=== PATIENT | female | born 1945 | race Caucasian/White ===

== ENCOUNTER 2018-04-10 19:13 | Emergency (ER) | payer MEDICARE, OTHER ==
[~2018-04-10] VITALS: Ht 156.2 cm; Wt 79.8 kg
[~2018-04-10 19:13] MED LIST: AVELOX400 MG PO; CEPHALEXIN500 MG PO; LEVOTHYROXINE100 MCG PO; LIPITOR20 MG PO; NORVASC5 MG PO; PANTOPRAZOLE SO40 MG PO; RAMIPRIL10 MG PO
[2018-04-10 20:38] LABS: BASOPHILS # (AUTO) 0.1 (0.0-0.1); BASOPHILS % 0.6 % (0.0-1.0); EOSINOPHILS # (AUTO) 0.1 (0.0-0.4); EOSINOPHILS % 0.8 % (0.0-6.0); HEMATOCRIT 42.5 % (34.2-44.1); HEMOGLOBIN 14.4 g/dL (12.0-16.0); LYMPHOCYTES # (AUTO) 2.2 (1.0-3.2); LYMPHOCYTES % 21.1 % (18.0-39.1); MEAN CORPUSCULAR HEMOGLOBIN 29.6 pg (28-32); MEAN CORPUSCULAR HGB CONC 33.9 g/dL (31-35); MEAN CORPUSCULAR VOLUME 87.4 fL (81-99); MONOCYTES # (AUTO) 1.1 (0.2-0.8); NEUTROPHILS # (AUTO) 7.1 (2.1-6.9); PLATELET COUNT 328 x10e3/uL (140-360); RED BLOOD COUNT 4.86 x10e6/uL (3.6-5.1); RED CELL DISTRIBUTION WIDTH 14.7 % (11.7-14.4)
[2018-04-10 20:50] LABS: ALANINE AMINOTRANSFERASE 20 IU/L (0-55); ALBUMIN 4.2 g/dL (3.5-5.0); ALBUMIN/GLOBULIN RATIO 1.1 (0.8-2.0); ALKALINE PHOSPHATASE 69 IU/L (40-150); ANION GAP 15.8 mmol/L (8-16); BLOOD UREA NITROGEN 21 mg/dL (7-26); BUN/CREATININE RATIO 27 (6-25); CALCIUM 10.8 mg/dL (8.4-10.2); CARBON DIOXIDE 25 mmol/L (22-29); CHLORIDE 97 mmol/L (98-107); CREATINE KINASE 102 IU/L (29-168); CREATININE, SERUM 0.79 mg/dL (0.57-1.11); EST GLOMERULAR FILTRATION RATE > 60 ML/MIN (60-); GLUCOSE 110 mg/dL (74-118); MAGNESIUM 1.5 MG/DL (1.3-2.1); POTASSIUM 3.8 mmol/L (3.5-5.1); SODIUM 134 mmol/L (136-145)
--- NOTE | 2018-04-10 21:22 | Diagnostic Imaging Report ---
CHEST SINGLE (PORTABLE), 04/10/2018 8:27 PM Technique: CHEST SINGLE (PORTABLE) Comparison: 02/28/2014 Clinical history: Palpitations Findings: Stable appearance of the heart, mediastinum, lungs and pleural spaces. Impression: 1. Lines/Tubes: None 2. No acute abnormality. Signed by: Dr Clementine Alcocer MD on 04/10/2018 9:19 PM
[2018-04-10 22:10] LABS: CLARITY,URINE CLEAR (CLEAR); COLOR,URINE YELLOW (YELLOW); LEUKOCYTE ESTERASE ,URINE NEGATIVE (NEGATIVE); NITRITE,URINE NEGATIVE (NEGATIVE)
[2018-04-10 22:11] LABS: BILIRUBIN,URINE NEGATIVE (NEGATIVE); KETONES,URINE NEGATIVE (NEGATIVE); PROTEIN,URINE DIPSTICK NEGATIVE (NEGATIVE); URINE UROBILINOGEN 0.2 mg/dL (0.2 - 1)
[2018-04-10 22:19] LABS: EPITHELIAL CELLS,URINE MODERATE /LPF; RENAL EPITHELIAL CELLS,URINE FEW
[2018-04-10 22:40] VITALS: BP 150/79
== END 2018-04-10 22:55 | disposition home or self-care (01) ==
LOC: ER 19:13
DX: R00.2 Palpitations (principal); R42 Dizziness and giddiness; I10 Essential (primary) hypertension; E78.5 Hyperlipidemia, unspecified; E03.9 Hypothyroidism, unspecified; K21.9 Gastro-esophageal reflux disease without esophagitis
CPT/HCPCS: 36415; 71045; 80053; 81001; 82550; 82553; 83735; 84484; 85025; 93005; 99284

== ENCOUNTER → 2018-10-11 | Day surgery (SDC) | payer MEDICARE, OTHER ==
[2018-10-06 14:33] LABS: BASOPHILS % 0.4 % (0.0-1.0); EOSINOPHILS # (AUTO) 0.1 (0.0-0.4); EOSINOPHILS % 0.8 % (0.0-6.0); HEMATOCRIT 41.7 % (34.2-44.1); HEMOGLOBIN 13.9 g/dL (12.0-16.0); LYMPHOCYTES # (AUTO) 2.5 (1.0-3.2); LYMPHOCYTES % 23.3 % (18.0-39.1); MEAN CORPUSCULAR HEMOGLOBIN 29.1 pg (28-32); MEAN CORPUSCULAR HGB CONC 33.3 g/dL (31-35); MEAN CORPUSCULAR VOLUME 87.4 fL (81-99); MONOCYTES % 9.2 % (4.4-11.3); NEUTROPHILS # (AUTO) 7.2 (2.1-6.9); NEUTROPHILS % 65.9 % (38.7-80.0); PLATELET COUNT 310 x10e3/uL (140-360); RED BLOOD COUNT 4.77 x10e6/uL (3.6-5.1); RED CELL DISTRIBUTION WIDTH 14.9 % (11.7-14.4)
[~2018-10-11] MED LIST changes: +ALPRAZOLAM0.5 MG PO; +ATENOLOL50 MG PO; +CHONDROITIN PO; +FENTANYL CITRATE/PF 100MCG/2 ML INJ ONE; +GLUCAGON FOR INJ 1 MG VIAL ONE; +GLUCOSAMINE1000 MG PO; +HYOSCYAMINE SULFATE 0.5 MG/ML INJ ONE; +MIDAZOLAM HCL 2 MG/2 ML VIAL ONE; +MULTI-VITAMIN1 EACH PO; +OMEGA 3 1,0001 EACH PO; +PROPOFOL IV EMULSION 10 MG/ML 50 ML VIAL ONE; +VIT D3 PO
--- NOTE | 2018-10-11 16:30 | Operative Report ---
DATE OF PROCEDURE: 10/11/2018 SURGEON: Jacob Dubon MD PROCEDURES: EGD with polypectomy and biopsies and a colonoscopy with polypectomy. REFERRING PHYSICIAN: Ruddy Soliman D.O. INDICATIONS FOR EGD: Acid reflux. INDICATIONS FOR COLONOSCOPY: Surveillance colonoscopy, personal history of colon polyps. MEDICATION: The patient was done under MAC. Please see anesthesiologist's note. PROCEDURE IN DETAIL: With the patient in left lateral decubitus position, a flexible fiberoptic Olympus gastroscope was introduced into the esophagus under direct visualization without any difficulty. There was some patchy erythema noted in distal esophagus. The scope was then advanced with ease into the stomach, traversing a small hiatal hernia. Mucosa overlying the antrum and the body revealed some patchy erythema and low-grade to moderate edema. Biopsies were obtained, sent to stain for H. pylori. Pylorus appeared to be of normal contour, shape, was intubated with ease and the scope was advanced all the way to the 2nd portion of the duodenum. A minute polyp was noted in the proximal 2nd portion that was removed per the cold biopsy forceps. Mucosa overlying the duodenal bulb appeared to be within normal limits. The scope was then withdrawn back into the stomach and retroflexed. The mucosa overlying the fundus and cardia appeared to be within normal limits. The scope was then straightened out and was subsequently withdrawn. The patient tolerated the procedure well. IMPRESSION: 1. Distal esophagitis, mild. 2. Small hiatal hernia. 3. Gastritis biopsied. Biopsies sent to stain for Helicobacter pylori. 4. Duodenal polyp, minute, proximal 2nd portion, removed per cold biopsy forceps. PLAN: Follow up pathology. Initiate Protonix 40 mg one p.o. q.a.m. before meals. The patient was then turned around. After adequate lubrication of the anal canal, a flexible fiberoptic Olympus colonoscope was inserted into the rectum with ease and advanced all the way to the cecum. The scope was then withdrawn slowly. Mucosa overlying the cecum, ascending colon appeared to be within normal limits. One polyp was snared and 2 polyps were hot biopsied from the transverse colon. One polyp was snared and 2 polyps were hot biopsied from the descending colon. Diverticular disease was noted involving the distal descending and the sigmoid colon. Six polyps were snared and 1 polypectomy site was hemoclipped and 12 polyps were hot biopsied from the sigmoid colon. Four polyps were hot biopsied from the rectum. The scope was then retroflexed into the distal rectum and small internal hemorrhoids were noted, none of which was actively bleeding. The scope was then straightened out and was subsequently withdrawn. The patient tolerated the procedure well. IMPRESSION: 1. Transverse colon polyps x3, 1 snared and 2 hot biopsied. 2. Descending colon polyps x3, 1 snared and 2 hot biopsied. 3. Diverticulosis. 4. Sigmoid colon polyps x18. Six snared and 1 polypectomy site hemoclipped and 12 hot biopsied. 5. Rectal polyps x4, hot biopsied. 6. Internal hemorrhoids none actively bleeding. A total of 28 polyps were removed. PLAN: Follow up histology. The patient does meet the criteria for the hyper polyposis syndrome. She will need a repeat colonoscopy at least in 1 year, probably earlier. MD CEDRIC Velazquez/DIANE /[id number] cc: Ruddy Soliman DO
--- OUTSIDE RECORDS SUMMARY | 2018-10-13 09:01 | XMS REPORT ---
Author Author [facility] Address Unknown Phone Unavailable Care Team Providers Care Department Sales Manager Name Role Phone Nam SHANNON Unavailable Unavailable Problems This patient has no known problems. Allergies, Adverse Reactions, Alerts This patient has no known allergies or adverse reactions. Medications This patient has no known medications. Results Test Description Test Time Test Comments Text Results Atomic Results Result Comments CHEST SINGLE (PORTABLE) 2018-04-10 21:19:00 [place] [address] Patient Name: TITO JOHNSON MR #: [id number] : 1945 Age/Sex: 72/F Req #: [id number] Adm Physician: Ordered by: ALPHONSE SHANNON MD Report #: [id number] Location: ER Room/Bed: Procedure: [id number] DX/CHEST SINGLE (PORTABLE) Exam Date: 04/10/18 Exam Time: 2039 REPORT STATUS: Signed CHEST SINGLE (PORTABLE), 04/10/2018 8:27 PM Technique: CHEST SINGLE (PORTABLE) Comparison: 02/28/2014 Clinical history: Palpitations Findings: Stable appearance of the heart, mediastinum, lungs and pleural spaces. Impression: 1. Lines/Tubes: None 2. No acute abnormality. Signed by: Dr Sharlene Alcocer MD on 04/10/2018 9:19 PM Dictated By: SHARLENE ALCOCER MD 18 Transcribed By: DENNIS on 04/10/182118 COPY TO: ALPHONSE SHANNON MD
== END | disposition home or self-care (01) ==
LOC: ENDO 08:04
PROVIDERS: ATTEND Internal Medicine Gastroenterology
DX: Z12.11 Encounter for screening for malignant neoplasm of colon (principal); Z86.010 Personal history of colon polyps; K21.0 Gastro-esophageal reflux disease with esophagitis; K44.9 Diaphragmatic hernia without obstruction or gangrene; K29.70 Gastritis, unspecified, without bleeding; K31.7 Polyp of stomach and duodenum; K63.5 Polyp of colon; K57.30 Diverticulosis of large intestine without perforation or abscess without bleeding; K62.1 Rectal polyp; K64.8 Other hemorrhoids; Z88.5 Allergy status to narcotic agent; Z88.2 Allergy status to sulfonamides; I10 Essential (primary) hypertension; F41.9 Anxiety disorder, unspecified; E03.9 Hypothyroidism, unspecified
CPT/HCPCS: 36415; 43239; 45384; 45385; 85025; 88305; 88312; 93005; J1610; J1980; J2250; J2704

== ENCOUNTER 2018-10-17 20:55 | Emergency (ER) | payer MEDICARE, OTHER ==
[~2018-10-17] VITALS: Ht 156.2 cm; Wt 79.8 kg
[~2018-10-17 20:55] MED LIST changes: -FENTANYL CITRATE/PF 100MCG/2 ML INJ ONE; -GLUCAGON FOR INJ 1 MG VIAL ONE; -HYOSCYAMINE SULFATE 0.5 MG/ML INJ ONE; -MIDAZOLAM HCL 2 MG/2 ML VIAL ONE; -PROPOFOL IV EMULSION 10 MG/ML 50 ML VIAL ONE
[2018-10-17] MEDS ORDERED: SODIUM CHLORIDE 0.9% 1000ML 1,000 ML IV ONE (21:15)
[2018-10-17] MEDS ORDERED: ONDANSETRON HCL INJ 2MG/ML 2ML 2 MG/ML VIAL IV ONE (21:30)
[2018-10-17 21:53] LABS: BASOPHILS # (AUTO) 0.1 (0.0-0.1); BASOPHILS % 0.4 % (0.0-1.0); EOSINOPHILS % 0.3 % (0.0-6.0); HEMATOCRIT 42.4 % (34.2-44.1); HEMOGLOBIN 13.9 g/dL (12.0-16.0); LYMPHOCYTES # (AUTO) 1.4 (1.0-3.2); LYMPHOCYTES % 11.7 % (18.0-39.1); MEAN CORPUSCULAR HEMOGLOBIN 28.5 pg (28-32); MEAN CORPUSCULAR HGB CONC 32.8 g/dL (31-35); MEAN CORPUSCULAR VOLUME 86.9 fL (81-99); MONOCYTES # (AUTO) 1.1 (0.2-0.8); MONOCYTES % 8.7 % (4.4-11.3); NEUTROPHILS # (AUTO) 9.6 (2.1-6.9); NEUTROPHILS % 78.4 % (38.7-80.0); PLATELET COUNT 330 x10e3/uL (140-360); RED BLOOD COUNT 4.88 x10e6/uL (3.6-5.1); RED CELL DISTRIBUTION WIDTH 14.6 % (11.7-14.4)
[2018-10-17 22:19] LABS: ALANINE AMINOTRANSFERASE 19 IU/L (0-55); ALBUMIN 4.1 g/dL (3.5-5.0); ALKALINE PHOSPHATASE 83 IU/L (40-150); AMYLASE 37 U/L (25-125); ANION GAP 15.2 mmol/L (8-16); BLOOD UREA NITROGEN 13 mg/dL (7-26); BUN/CREATININE RATIO 16 (6-25); CALCIUM 10.5 mg/dL (8.4-10.2); CARBON DIOXIDE 21 mmol/L (22-29); CHLORIDE 100 mmol/L (98-107); CREATINE KINASE 127 IU/L (29-168); EST GLOMERULAR FILTRATION RATE > 60 ML/MIN (60-); GLUCOSE 115 mg/dL (74-118); LIPASE 19 U/L (8-78); POTASSIUM 4.2 mmol/L (3.5-5.1); SODIUM 132 mmol/L (136-145)
[2018-10-17 22:46] LABS: CLARITY,URINE CLEAR (CLEAR); COLOR,URINE YELLOW (YELLOW); LEUKOCYTE ESTERASE ,URINE NEGATIVE (NEGATIVE)
[2018-10-17 22:47] LABS: BILIRUBIN,URINE NEGATIVE (NEGATIVE); KETONES,URINE NEGATIVE (NEGATIVE); NITRITE,URINE NEGATIVE (NEGATIVE); PROTEIN,URINE DIPSTICK 1+ (NEGATIVE); URINE UROBILINOGEN 0.2 mg/dL (0.2 - 1)
--- NOTE | 2018-10-17 23:24 | Diagnostic Imaging Report ---
EXAMINATION: CHEST SINGLE (NOT PORTABLE) COMPARISON: Chest x-ray 04/10/2018 INDICATION: Near syncope ^near syncope ^[id number] ^2300 ^Y DISCUSSION: Frontal view of the chest obtained at 2257 hours. HEART AND MEDIASTINUM: The cardiomediastinal silhouette is unremarkable. LINES: None. LUNGS: Well-inflated and clear. PLEURA: No pleural effusion or pneumothorax. 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 BONES AND SOFT TISSUES: No focal osseous lesion. The soft tissues are normal. IMPRESSION: No acute cardiopulmonary disease. Signed by: Dr. Rc Fuller MD on 10/17/2018 11:21 PM
--- NOTE | 2018-10-17 23:33 | Diagnostic Imaging Report ---
Examination: CT head without contrast Clinical Indication: Near syncope with fall and head injury. Technique: Transaxial noncontrast images from the skull base through the vertex were obtained. Sagittal and coronal reformatted images were done. Dose modulation, iterative reconstruction, and/or weight based adjustment of the mA/kV was utilized to reduce the radiation dose to as low as reasonably achievable. Comparison: None. Findings: Scalp: No abnormalities. Bones: Intact. No fractures. No blastic or lytic lesions. Brain sulci: Appropriate for patient's age. Ventricles: Normal in size and configuration. No hydrocephalus. Extra-axial space: No abnormalities. Parenchyma: No masses, hemorrhage, or acute or chronic cortical based vascular insults. Suprasellar region: No abnormalities. Craniocervical junction: The foramen magnum is mildly crowded due to cerebellar tonsillar ectopia. Impression: No acute intracranial abnormality. Cerebellar tonsillar ectopia. Signed by: Dr. Sigrid Diaz M.D. on 10/17/2018 11:29 PM
--- NOTE | 2018-10-17 23:35 | Diagnostic Imaging Report ---
Examination: CT Face without Contrast History:Near syncope with fall and face injury. Comparison studies: None Technique: Axial images were obtained through the maxillofacial region. Coronal and sagittal reconstructions obtained from the axial data. Dose modulation, iterative reconstruction, and/or weight based adjustment of the mA/kV was utilized to reduce the radiation dose to as low as reasonably achievable. Intravenous contrast: None Findings: Soft tissues: No abnormalities. Bones: No fractures or bony abnormalities. Orbits: Globes: Intact Extra or intraconal abnormalities: None. Paranasal sinuses: Clear. IMPRESSION: No acute facial abnormality. Signed by: Dr. Sigrid Diaz M.D. on 10/17/2018 11:31 PM
[2018-10-17 23:38] LABS: BACTERIA,URINE FEW /HPF; EPITHELIAL CELLS,URINE FEW /LPF; RBC,URINE 0-5 /HPF (0-5); WBC,URINE (MAN) 0-5 /HPF (0-5)
--- NOTE | 2018-10-17 23:38 | Diagnostic Imaging Report ---
CT Abdomen And Pelvis with Intravenous Contrast INDICATION: Colonoscopy one week ago, constipation, diarrhea and incontinence after taking 8 Dulcolax and 2 bottles magnesium citrate and an enema, diaphoresis and weakness, fall ^abd pain ^[id number] ^0 ^Y TECHNIQUE: Thin collimation axial images obtained from the diaphragm to the level of the pubic symphysis following the uneventful administration of 100 cc of low osmolar, nonionic intravenous contrast. Dose reduction techniques used: Automated exposure control, adjustment of the mAs and/or kVp according to patient size, standardized low-dose protocol, and/or iterative reconstruction technique. RADIATION DOSE: Total DLP: 675.88 mGy*cm Estimated effective dose: (DLP x 0.015 x size factor) mSv CTDIvol has been reviewed. It is below the limits set by the Radiation Protocol Committee (RPC). COMPARISON: None. ABDOMEN FINDINGS: Lung Bases: No infiltrates. Subpleural nodule in the inferior right upper lobe measures 2 mm. Small hiatal hernia. Liver: Decreased attenuation. No evidence for mass. Gallbladder: Present and appears normal. No biliary ductal dilatation. Pancreas: Fatty atrophy without mass or ductal dilatation.. Spleen: Normal in size. No evidence of mass.. Adrenal Glands: No evidence for mass. Kidneys: Right: Normal enhancement. No enhancing mass. Subcentimeter low attenuating lesion the upper pole is too small to characterize.. No hydronephrosis. Left: Normal enhancement. No enhancing mass. Subcentimeter low attenuating cortical lesions are too small to characterize. No hydronephrosis. Lymph Nodes: No enlarged abdominal or retroperitoneal lymph nodes. Aorta: Normal in diameter with diffuse calcifications PELVIS FINDINGS: Bowel: Stomach: Distended with fluid. Several round hyperdense foci in the body along the greater curvature measure up to 7 mm. This may be due to medication. Small Bowel: Mucosal enhancement of the jejunum and ileum. No dilatation. No adjacent inflammation. Large Bowel: Contains fluid throughout. The cecum is distended with fluid but not dilated. Small amount of dependently layering high density material in the cecum may be the result of medication or barium. There is a biopsy clip in the anterior wall of the proximal sigmoid colon (series 2, image 70). This portion of the colon is collapsed. Diverticulosis coli, predominantly of the sigmoid colon, without associated inflammation. There is mild mural hyperemia of the rectum without perirectal fat induration. No solid stool in the large bowel. Appendix: Normal appendix. Bladder: Normal. The uterus is absent. There are no adnexal masses. Lymph nodes: No enlarged mesenteric, pelvic, or inguinal lymph nodes.. Peritoneum/retroperitoneum: No free fluid or fluid collection. No free air. Bones: Mixed lytic and sclerotic lesion in the posterior body of L5 measures 19 mm with narrow zone of transition. There are mild degenerative changes of the spine. No compression fractures. Visualized ribs are intact. No diastases of the pubic symphysis, sacroiliac joints. The hips are intact and normally positioned. Soft tissues: Unremarkable. IMPRESSION: 1. Fluid throughout the stomach, small bowel, and large bowel without evidence of obstruction. Mucosal hyperemia of the rectum is likely secondary to aggressive catharsis. No solid stool burden. 2. Diverticulosis coli. No evidence of diverticulitis. Normal appendix. Clip in the proximal sigmoid colon as described above. 3. Subcentimeter low attenuating renal lesions are likely cysts. 4. Steatosis. 5. Mixed lytic and sclerotic lesion in the L5 vertebral body has no specific features. Recommend further characterization with MRI on an outpatient basis. Signed by: Dr. Rc Fuller MD on 10/17/2018 11:35 PM
[2018-10-18 00:41] VITALS: BP 109/55
[2018-10-18] MEDS ORDERED: SODIUM CHLORIDE 0.9% 50ML 50 ML ONE (04:51)
[2018-10-18] MEDS ORDERED: IOPAMIDOL 370 MG/ML 200 ML INFUS..BTL INJ ONE (04:51)
== END 2018-10-18 01:02 | disposition home or self-care (01) ==
LOC: ER 20:55
DX: R10.84 Generalized abdominal pain (principal); R11.2 Nausea with vomiting, unspecified; R19.7 Diarrhea, unspecified; R55 Syncope and collapse
CPT/HCPCS: 36415; 70450; 70486; 71045; 74177; 80053; 81001; 82150; 82550; 82553; 82948; 83690; 84484; 85025; 93005; 99284; J2405; J7030; Q9967

== ENCOUNTER → 2019-01-22 | Outpatient (CLI) | payer MEDICARE, OTHER ==
[~2019-01-22] MED LIST changes: +GADOBENATE DIMEGLUMINE 1 ML IV ONE
--- NOTE | 2019-01-22 18:35 | Diagnostic Imaging Report ---
MRI SPINE LUMBAR WOW HISTORY: L5 lesion seen on CT COMPARISON: CT of the abdomen and pelvis dated 10/17/2018 TECHNIQUE: Multiplanar, multisequence MRI of the lumbar spine was performed without and with intravenous contrast. 17 mL of MultiHance were administered. DISCUSSION: Number of non-rib bearing lumbar vertebral bodies: 5. Alignment: Straightening of the lumbar lordosis. No scoliosis. Vertebrae: Approximately 1.6 cm heterogeneous T1 hypointense, STIR hyperintense, enhancing nodular lesion in the left posterior L5 vertebral body is present. This corresponds to the mixed lucent/sclerotic lesion seen on prior CT. This lesion slightly extends into the left pedicle. No vertebral compression deformity is seen. Conus medullaris: Normal, ends at approximately L1. Cauda equina: No masses or arachnoiditis. Posterior paraspinal muscles: Well preserved. No signal abnormalities. Soft tissues: No small T2 hyperintense lesion in the right kidney is likely a cyst. There is mild disc degeneration from L3-L4 to L5-S1. Minimal inflammatory endplate changes at L3-L4 and L4-L5. T12-L1: Patent canal and foramina. L1-L2: Patent canal and foramina. L2-L3: Patent canal and foramina. L3-L4: Mild canal stenosis due to disc bulge and ligamentum flavum thickening. No significant foraminal stenosis. L4-L5: Mild canal stenosis due to disc bulge and ligamentum flavum thickening. Mild bilateral foraminal stenoses due to disc bulge and facet arthrosis. L5-S1: Mild bilateral foraminal stenoses due to disc bulge and facet arthrosis. No significant canal stenosis. IMPRESSION: 1. Nonspecific 1.6 cm mixed lucent/sclerotic, enhancing nodular lesion in the left posterior L5 vertebral body could be an atypical hemangioma (with surrounding sclerosis) or metastasis in the appropriate clinical setting. Further evaluation with bone scan is recommended (to look for other lesions). 2. Mild lower lumbar disc degeneration with nonspecific minimal inflammatory endplate changes at L3-L4 and L4-L5. 3. Mild degenerative canal stenoses at L3-L4 and L4-L5. 4. Mild bilateral degenerative foraminal stenoses at L4-L5 and L5-S1. Signed by: Dr. Misael Del Castillo M.D. on 01/22/2019 6:31 PM
== END ==
LOC: MRI 10:43
PROVIDERS: ATTEND Family Medicine
DX: R93.7 Abnormal findings on diagnostic imaging of other parts of musculoskeletal system (principal)
CPT/HCPCS: 72158; A9577

== ENCOUNTER → 2019-02-05 | Outpatient (CLI) | payer MEDICARE, OTHER ==
[~2019-02-05] MED LIST changes: -GADOBENATE DIMEGLUMINE 1 ML IV ONE
--- NOTE | 2019-02-06 10:52 | Diagnostic Imaging Report ---
Bone Scan, three-phase Reason for exam: Benign neoplasm of vertebral column; nonspecific mixed lytic sclerotic focus in L5 vertebral body on MRI 01/22/2019. Radiopharmaceutical: Tc-99m MDP 27 mCi Comparison: MRI spine 01/22/2019 Following intravenous administration of the radiopharmaceutical, dynamic flow and immediate blood pool images lower spine followed by delayed total body and selected spot images were obtained. Flow and blood pool images show physiologic distribution of tracer activity to the lower spine. Distribution of tracer activity in the skeletal system appears physiologic on the delayed planar images without focal abnormality. Impression: 1. No acute osteoblastic process is seen in L5 to correspond to the 1.6 cm lesion seen on MRI.. 2. No scan pattern of metastatic bone disease. Signed by: Dr. Carine Vasquez M.D. on 02/06/2019 10:48 AM
== END ==
LOC: NM 12:36
PROVIDERS: ATTEND Neurological Surgery
DX: D16.6 Benign neoplasm of vertebral column (principal)
CPT/HCPCS: 78315; A9503

== ENCOUNTER → 2019-04-07 | Outpatient (CLI) | payer MEDICARE, OTHER ==
--- NOTE | 2019-04-07 17:28 | Diagnostic Imaging Report ---
Abdomen/KUB INDICATION: Status post colonoscopy with polyp removal, lower abdominal pain ^[id number] ^1625 ^RECTAL PAIN COMPARISON: CT abdomen/pelvis 10/17/2018. FINDINGS: Medical Devices: None Bowel: Unremarkable bowel gas pattern. No dilated bowel loops or pneumatosis. No significant burden of stool in the large bowel. Free air: None Abdominal calcifications: None Organomegaly: None Bones: Degenerative changes of the lower lumbar spine. No focal osseous lesions. Soft tissues: There are buttons over the medial left upper quadrant, likely outside the patient. IMPRESSION: Unremarkable bowel gas pattern. Signed by: Dr. Rc Fuller MD on 04/07/2019 5:25 PM
== END ==
LOC: RAD 15:57
PROVIDERS: ATTEND Internal Medicine Gastroenterology
DX: K62.89 Other specified diseases of anus and rectum (principal); R10.30 Lower abdominal pain, unspecified
CPT/HCPCS: 74018

== ENCOUNTER → 2019-10-10 | Day surgery (SDC) | payer MEDICARE, OTHER ==
[2019-10-06 16:18] LABS: BASOPHILS # (AUTO) 0.1 (0.0-0.1); BASOPHILS % 0.5 % (0.0-1.0); EOSINOPHILS # (AUTO) 0.1 (0.0-0.4); EOSINOPHILS % 1.1 % (0.0-6.0); HEMATOCRIT 41.1 % (34.2-44.1); HEMOGLOBIN 13.4 g/dL (12.0-16.0); LYMPHOCYTES # (AUTO) 2.4 (1.0-3.2); LYMPHOCYTES % 25.9 % (18.0-39.1); MEAN CORPUSCULAR HEMOGLOBIN 28.8 pg (28-32); MEAN CORPUSCULAR HGB CONC 32.6 g/dL (31-35); MEAN CORPUSCULAR VOLUME 88.4 fL (81-99); MONOCYTES # (AUTO) 1.1 (0.2-0.8); MONOCYTES % 11.2 % (4.4-11.3); NEUTROPHILS # (AUTO) 5.7 (2.1-6.9); PLATELET COUNT 316 x10e3/uL (140-360); RED BLOOD COUNT 4.65 x10e6/uL (3.6-5.1); RED CELL DISTRIBUTION WIDTH 14.9 % (11.7-14.4)
[~2019-10-10] MED LIST changes: +CLONIDINE1 EAC1; +CRANBERRY200 MG; +GLUCAGON FOR INJ 1 MG VIAL ONE; +HYOSCYAMINE 0.125 MG TAB ONE; +MIDAZOLAM HCL 2 MG/2 ML VIAL ONE; +MIRALAX17 GM; +PROBIOTIC; +PROPOFOL IV EMULSION 10 MG/ML 50 ML VIAL ONE; +RESTASIS1 EACH; +STOOL SOFTENER50 MG
--- NOTE | 2019-10-10 13:21 | Operative Report ---
DATE OF PROCEDURE: 10/10/2019 SURGEON: Jacob Dubon MD PROCEDURE: Colonoscopy with polypectomy. INDICATIONS FOR COLONOSCOPY: Surveillance colonoscopy, personal history of numerous colon polyps meeting the criteria for hyper polyposis syndrome. MEDICATIONS: The patient was done under MAC, please see anesthesiologist's note. PROCEDURE IN DETAIL: With the patient in the left lateral decubitus position, a flexible fiberoptic Olympus colonoscope was inserted into the rectum with ease and advanced all the way to the cecum. It was then withdrawn slowly, mucosa overlying the cecum and ascending colon appeared to be within normal limits. Four polyps were hot biopsied and one polyp was hot snared from the transverse colon. Diverticular disease was noted to involve the left colon. Three polyps were hot biopsied and 5 polyps were hot snared from the descending colon. Five polyps were hot biopsied from the sigmoid colon. Twelve polyps were hot biopsied from the rectum. The scope was then retroflexed into the distal rectum and small internal hemorrhoids were noted, none of which was actively bleeding. The scope was then straightened out, it was subsequently withdrawn, and the patient tolerated the procedure well. IMPRESSION: 1. Transverse colon polyps x5, one snared and four hot biopsied. 2. Diverticulosis. 3. Descending colon polyps x8, five removed per snare electrocautery and three hot biopsied. 4. Sigmoid colon polyps x5, hot biopsied. 5. Rectal polyps x12, hot biopsied. 6. Internal hemorrhoids, none actively bleeding. PLAN: Follow up histology. A total of 30 polyps were removed. The patient will need a colonoscopy in one year. Jacob Dubon MD [facility] /[id number] cc: Ruddy Soliman DO
== END | disposition home or self-care (01) ==
LOC: OR 08:07
PROVIDERS: ATTEND Internal Medicine Gastroenterology
DX: K63.5 Polyp of colon (principal); K62.1 Rectal polyp; K57.30 Diverticulosis of large intestine without perforation or abscess without bleeding; K64.8 Other hemorrhoids; K29.70 Gastritis, unspecified, without bleeding; K44.9 Diaphragmatic hernia without obstruction or gangrene; K20.9 Esophagitis, unspecified; K21.9 Gastro-esophageal reflux disease without esophagitis; I10 Essential (primary) hypertension; E78.00 Pure hypercholesterolemia, unspecified; Z72.0 Tobacco use; Z88.6 Allergy status to analgesic agent; Z88.2 Allergy status to sulfonamides; Z01.810 Encounter for preprocedural cardiovascular examination; Z01.812 Encounter for preprocedural laboratory examination; Z68.33 Body mass index [BMI] 33.0-33.9, adult
CPT/HCPCS: 36415; 45384; 45385; 85025; 88305; 93005; J1610; J2704

== ENCOUNTER → 2019-12-14 | Outpatient (CLI) | payer MEDICARE, OTHER ==
[~2019-12-14] MED LIST changes: -GLUCAGON FOR INJ 1 MG VIAL ONE; -HYOSCYAMINE 0.125 MG TAB ONE; -MIDAZOLAM HCL 2 MG/2 ML VIAL ONE; -PROPOFOL IV EMULSION 10 MG/ML 50 ML VIAL ONE
--- NOTE | 2019-12-14 13:06 | Diagnostic Imaging Report ---
MRI of the left shoulder without contrast. History: Shoulder pain. Strain. Decreased range of motion. Pain not responding to conservative management Comparison: None Technique: Coronal PD FS, sagital PD FS, and axial PD and PD FS. Findings: Rotator cuff: Rotator cuff tendinosis with mild bursal sided fraying involving the supraspinatus and infraspinatus tendons adjacent to the humeral insertion site. Additionally, there is mild subscapularis tendinosis. Osseous acromion complex: Type II acromion with mild lateral downsloping. Mild degenerative arthrosis at the acromioclavicular joint with undersurface spurring and mild narrowing of the supraspinatus tendon outlet. Glenohumeral joint: Degeneration and fraying of the labrum. The articular cartilage surfaces are intact. The humeral head is well-seated in the glenoid fossa. Biceps tendon: The biceps tendon is intact. Other findings: Negative for muscle denervation or osseous fracture. Impression: Mild degenerative arthrosis at the acromioclavicular joint with narrowing of the supraspinatus tendon outlet. Rotator cuff tendinosis with mild bursal sided fraying involving the supraspinatus and infraspinatus tendons adjacent to the humeral insertion site. Signed by: Dr. Ever Santiago M.D. on 12/14/2019 1:03 PM
== END ==
LOC: MRI 11:22
PROVIDERS: ATTEND Family Medicine
DX: S46.012A Strain of muscle(s) and tendon(s) of the rotator cuff of left shoulder, initial encounter (principal)

== ENCOUNTER → 2020-11-21 | Day surgery (SDC) | payer MEDICARE, OTHER ==
[2020-11-17 11:53] LABS: BASOPHILS # (AUTO) 0.1 (0.0-0.1); BASOPHILS % 0.4 % (0.0-1.0); EOSINOPHILS # (AUTO) 0.1 (0.0-0.4); HEMATOCRIT 42.6 % (34.2-44.1); HEMOGLOBIN 13.8 g/dL (12.0-16.0); LYMPHOCYTES # (AUTO) 2.4 (1.0-3.2); LYMPHOCYTES % 20.3 % (18.0-39.1); MEAN CORPUSCULAR HEMOGLOBIN 28.9 pg (28-32); MEAN CORPUSCULAR HGB CONC 32.4 g/dL (31-35); MEAN CORPUSCULAR VOLUME 89.1 fL (81-99); MONOCYTES # (AUTO) 1.1 (0.2-0.8); MONOCYTES % 9.2 % (4.4-11.3); NEUTROPHILS % 68.7 % (38.7-80.0); PLATELET COUNT 329 x10e3/uL (140-360); RED BLOOD COUNT 4.78 x10e6/uL (3.6-5.1); RED CELL DISTRIBUTION WIDTH 14.7 % (11.7-14.4)
[~2020-11-21] MED LIST changes: +CLONIDINE HCL0.2 MG PO; +FENTANYL CITRATE/PF 100MCG/2 ML INJ ONE; +MIDAZOLAM HCL 2 MG/2 ML VIAL ONE; +PANTOPRAZOLE 40 MG 10ML VIAL ONE; +PEPCID20 MG PO; +PROPOFOL IV EMULSION 10 MG/ML 20 ML VIAL ONE
[2020-11-21 12:45] VITALS: BP 126/63
== END | disposition home or self-care (01) ==
LOC: OR 08:27
PROVIDERS: ATTEND Internal Medicine Gastroenterology
DX: K29.70 Gastritis, unspecified, without bleeding (principal); K63.5 Polyp of colon; K62.1 Rectal polyp; K31.7 Polyp of stomach and duodenum; K44.9 Diaphragmatic hernia without obstruction or gangrene; K21.00 Gastro-esophageal reflux disease with esophagitis, without bleeding; K22.8 Other specified diseases of esophagus; K57.30 Diverticulosis of large intestine without perforation or abscess without bleeding; K64.8 Other hemorrhoids; I10 Essential (primary) hypertension; F41.9 Anxiety disorder, unspecified; F17.200 Nicotine dependence, unspecified, uncomplicated; Z88.6 Allergy status to analgesic agent; Z88.2 Allergy status to sulfonamides; Z01.810 Encounter for preprocedural cardiovascular examination; Z01.812 Encounter for preprocedural laboratory examination; Z20.822 Contact with and (suspected) exposure to COVID-19
CPT/HCPCS: 36415; 43239; 45380; 45384; 45385; 85025; 88305; 88312; 93005; C9113; J2250; J2704; J3010; U0002

== ENCOUNTER → 2020-12-23 | Outpatient (CLI) | payer MEDICARE, OTHER ==
[~2020-12-23] MED LIST changes: -FENTANYL CITRATE/PF 100MCG/2 ML INJ ONE; -MIDAZOLAM HCL 2 MG/2 ML VIAL ONE; -PANTOPRAZOLE 40 MG 10ML VIAL ONE; -PROPOFOL IV EMULSION 10 MG/ML 20 ML VIAL ONE
== END ==
LOC: MRI 12:43
PROVIDERS: ATTEND Family Medicine
DX: M48.061 Spinal stenosis, lumbar region without neurogenic claudication (principal)
CPT/HCPCS: 72148

== ENCOUNTER 2021-01-12 08:00 | Observation (INO) | payer MEDICARE, OTHER ==
[2021-01-09 11:03] LABS: BASOPHILS # (AUTO) 0.1 (0.0-0.1); BASOPHILS % 0.6 % (0.0-1.0); EOSINOPHILS # (AUTO) 0.1 (0.0-0.4); EOSINOPHILS % 1.3 % (0.0-6.0); HEMATOCRIT 40.7 % (34.2-44.1); HEMOGLOBIN 13.3 g/dL (12.0-16.0); LYMPHOCYTES # (AUTO) 1.9 (1.0-3.2); LYMPHOCYTES % 19.6 % (18.0-39.1); MEAN CORPUSCULAR HEMOGLOBIN 29.3 pg (28-32); MEAN CORPUSCULAR HGB CONC 32.7 g/dL (31-35); MEAN CORPUSCULAR VOLUME 89.6 fL (81-99); MONOCYTES # (AUTO) 1.1 (0.2-0.8); MONOCYTES % 11.6 % (4.4-11.3); NEUTROPHILS # (AUTO) 6.4 (2.1-6.9); NEUTROPHILS % 66.5 % (38.7-80.0); PLATELET COUNT 297 x10e3/uL (140-360); RED BLOOD COUNT 4.54 x10e6/uL (3.6-5.1); RED CELL DISTRIBUTION WIDTH 15.2 % (11.7-14.4)
[2021-01-09 11:28] LABS: INR 0.88; PROTHROMBIN TIME 12.5 seconds (11.9-14.5)
[2021-01-09 11:29] LABS: PARTIAL THROMBOPLASTIN TIME 28.1 seconds (23.8-35.5)
[2021-01-09 11:30] LABS: ANION GAP 16.6 mmol/L (8-16); BLOOD UREA NITROGEN 22 mg/dL (7-26); BUN/CREATININE RATIO 29 (6-25); CALCIUM 10.1 mg/dL (8.4-10.2); CARBON DIOXIDE 25 mmol/L (22-29); CHLORIDE 102 mmol/L (98-107); CREATININE, SERUM 0.75 mg/dL (0.57-1.11); EST GLOMERULAR FILTRATION RATE > 60 ML/MIN (60-); GLUCOSE 92 mg/dL (74-118); POTASSIUM 4.6 mmol/L (3.5-5.1); SODIUM 139 mmol/L (136-145)
[~2021-01-12] VITALS: Ht 154.9 cm; Wt 85.8 kg
[~2021-01-12 08:00] MED LIST changes: +ACETAMINOPHEN 1000 MG/100 ML 100 ML IV ONE; +ETODOLAC300 MG PO; +IBUPROFEN 800MG/ 200ML 200 ML IV ONE; +LIDOCAINE HCL (LTA) 4 ML SOLN ONE; +TIZANIDINE HCL4 M1 PO
[2021-01-12] MEDS ORDERED: THROMBIN FOR SOLN 5,000 UNIT VIAL ONE (08:53)
[2021-01-12] MEDS ORDERED: BUPIVACAINE 0.5%/EPI 30 ML SDV INJ ONE (08:53)
[2021-01-12] MEDS ORDERED: VANCOMYCIN HCL 1 GM VIAL ONE (08:53)
[2021-01-12] MEDS ORDERED: CEFAZOLIN SOD 1 GM/NS 50ML 0 ML IV ONE (09:16)
[2021-01-12] MEDS ORDERED: VANCOMYCIN 1GM/NS 250 ML 0 ML ONE (09:21)
[2021-01-12] MEDS ORDERED: VANCOMYCIN 1GM/NS 250 ML 250 ML ONE (10:02)
[2021-01-12] MEDS ORDERED: IBUPROFEN 400 MG TAB PO PRN (12:00)
[2021-01-12] MEDS ORDERED: HYDROMORPHONE 2MG/ML 2 MG/ML ML IV PRN (12:00)
[2021-01-12] MEDS ORDERED: ACETAMINOPHEN 325 MG TAB PO PRN (12:00)
[2021-01-12] MEDS ORDERED: CARISOPRODOL 350 MG TAB PO PRN (12:00)
[2021-01-12] MEDS ORDERED: MORPHINE SULFATE 5 MG/ML VIAL IM PRN (12:00)
[2021-01-12] MEDS ORDERED: PROMETHAZINE HCL (IM) 25 MG/ML VIAL IM PRN (12:00)
[2021-01-12] MEDS ORDERED: ONDANSETRON HCL INJ 2MG/ML 2ML 2 MG/ML VIAL IV PRN (12:00)
[2021-01-12] MEDS ORDERED: MAGNESIUM/ALUMINUM/SIMETHICONE 30 ML UDC PO PRN (12:00)
[2021-01-12] MEDS ORDERED: CEPACOL SORE THROAT LOZENGES PO PRN (12:00)
[2021-01-12] MEDS ORDERED: OXYCODONE/ACETAMINOPHEN 5-325 1 EACH TABLET PO PRN (12:00)
[2021-01-12] MEDS ORDERED: HYDROCODON-ACE1 EA12 PO (12:02)
[2021-01-12] MEDS ORDERED: SUGAMMADEX SODIUM 200 MG/2 ML VIAL IV ONE (12:09)
[2021-01-12] MEDS ORDERED: FENTANYL CITRATE/PF 100MCG/2 ML INJ ONE ×2 (12:52→13:21)
[2021-01-12] MEDS ORDERED: EPHEDRINE SULFATE INJ 50 MG/ML VIAL ONE (12:56)
[2021-01-12] MEDS ORDERED: ROCURONIUM BROMIDE 10 MG/ML 5ML VIAL IV ONE (12:56)
[2021-01-12] MEDS ORDERED: LIDOCAINE HCL 2% LOCAL INJ 5 ML SDV VIAL INJ ONE (12:56)
[2021-01-12] MEDS ORDERED: DEXAMETHASONE SOD PHOS INJ 4 MG/ML VIAL ONE (12:56)
[2021-01-12] MEDS ORDERED: POVIDONE IODINE 0.05% 0.05 % ML PO ONE (12:56)
[2021-01-12] MEDS ORDERED: NEOSTIGMINE 1 MG/ML 10ML VIAL ONE (12:56)
[2021-01-12] MEDS ORDERED: ONDANSETRON HCL INJ 2MG/ML 2ML 2 MG/ML VIAL ONE (12:56)
[2021-01-12] MEDS ORDERED: GLYCOPYRROLATE INJ 0.2 MG/ML VIAL ONE (12:56)
[2021-01-12] MEDS ORDERED: SEVOFLURANE INHAL SOLN 250 ML PEN BTL ONE (12:56)
[2021-01-12] MEDS ORDERED: LIDOCAINE HCL 2% JELLY 5 ML TUBE ONE (12:56)
[2021-01-12] MEDS ORDERED: PROPOFOL IV EMULSION 10 MG/ML 20 ML VIAL ONE (12:56)
[2021-01-12] MEDS ORDERED: MIDAZOLAM HCL 2 MG/2 ML VIAL ONE (13:21)
[2021-01-12] MEDS: TIZANIDINE HCL 4 MG TAB PO SCH ×2 (14:00→21:29)
[2021-01-12] MEDS ORDERED: OXYCODONE/ACETAMINOPHEN 5-325 1 EACH TABLET ONE (14:34)
[2021-01-12] MEDS ORDERED: CARISOPRODOL 350 MG TAB ONE (14:34)
[2021-01-12 15:53] VITALS: BP 103/90
[2021-01-12] MEDS: LACTATED RINGER'S 1,000 ML IV SCH (16:25)
[2021-01-12] MEDS: RAMIPRIL 5 MG CAP PO SCH (16:26)
[2021-01-12] MEDS: AMLODIPINE BESYLATE 5 MG TAB PO SCH (16:26)
[2021-01-12] MEDS: OMEGA 3 POLYUNSAT FATTY ACIDS 1000 MG SOFTGEL PO SCH (16:27)
[2021-01-12] MEDS ORDERED: NON-FORMULARY MEDICATION (Ramipril 10 MG) PO SCH (17:00)
[2021-01-12 17:44] VITALS: BP 103/90
[2021-01-12] MEDS: CEFAZOLIN SOD 1 GM/NS 50ML 50 ML IV SCH (17:44)
[2021-01-12] MEDS ORDERED: MORPHINE SULFATE INJ 4 MG/ML INJ 1ML IM PRN (19:00)
[2021-01-12 19:51] VITALS: BP 126/54
[2021-01-12 21:00] VITALS: BP 126/54
[2021-01-12] MEDS ORDERED: FAMOTIDINE 20 MG TAB PO SCH (21:00)
[2021-01-12] MEDS ORDERED: POLYETHYLENE GLYCOL 3350 17 GM PACK PO SCH (21:00)
[2021-01-12] MEDS ORDERED: ALPRAZOLAM 0.25 MG TAB PO SCH (21:00)
[2021-01-12] MEDS ORDERED: ZOLPIDEM TARTRATE 5 MG TAB PO PRN (21:00)
[2021-01-12 23:24] VITALS: BP 109/52
[2021-01-13] MEDS: LACTATED RINGER'S 1,000 ML IV SCH ×2 (01:19→04:40)
[2021-01-13] MEDS: CEFAZOLIN SOD 1 GM/NS 50ML 50 ML IV SCH ×2 (02:00→09:14)
[2021-01-13 04:00] VITALS: BP 115/50
[2021-01-13] MEDS: TIZANIDINE HCL 4 MG TAB PO SCH (05:02)
[2021-01-13] MEDS ORDERED: LEVOTHYROXINE SODIUM 100 MCG TAB PO SCH (06:00)
[2021-01-13 07:49] VITALS: BP 119/55
[2021-01-13 08:07] VITALS: BP 119/55
[2021-01-13] MEDS ORDERED: ATENOLOL 50 MG TAB PO SCH (09:00)
[2021-01-13] MEDS ORDERED: CLONIDINE HCL 0.1 MG TAB PO SCH (09:00)
[2021-01-13] MEDS ORDERED: PANTOPRAZOLE SOD 40 MG TABEC PO SCH (09:00)
[2021-01-13] MEDS ORDERED: ATORVASTATIN 40 MG TAB PO SCH (09:00)
[2021-01-13] MEDS: OMEGA 3 POLYUNSAT FATTY ACIDS 1000 MG SOFTGEL PO SCH (09:00)
[2021-01-13] MEDS ORDERED: MULTIVITAMINS/MINERALS TAB PO SCH (09:00)
[2021-01-13] MEDS: AMLODIPINE BESYLATE 5 MG TAB PO SCH (09:13)
[2021-01-13] MEDS: RAMIPRIL 5 MG CAP PO SCH (09:13)
== END 2021-01-13 10:53 | disposition home or self-care (01) ==
LOC: OR 08:00 → PACU V 12:01 → MED/SURG 15:43
PROVIDERS: ADMIT Neurological Surgery; ATTEND Neurological Surgery
CPT/HCPCS: 36415; 71046; 72020; 80048; 85025; 85610; 85730; 86850; 86900; 88304; 88311; 93971; G0378; J0690; J1100; J2001; J2250; J2405; J2710; J3010; J3370; J7121; U0002

== ENCOUNTER → 2021-03-28 | Outpatient (CLI) | payer MEDICARE, OTHER ==
[~2021-03-28] MED LIST changes: -ACETAMINOPHEN 1000 MG/100 ML 100 ML IV ONE; +HYDROCODON-ACE1 EA12 PO; -IBUPROFEN 800MG/ 200ML 200 ML IV ONE; -LIDOCAINE HCL (LTA) 4 ML SOLN ONE
== END ==
LOC: DX 12:31
PROVIDERS: ATTEND Family Medicine
DX: M85.80 Other specified disorders of bone density and structure, unspecified site (principal); N95.9 Unspecified menopausal and perimenopausal disorder
CPT/HCPCS: 77080

== ENCOUNTER → 2022-11-02 | Day surgery (SDC) | payer MEDICARE, OTHER ==
[2022-10-31 15:03] LABS: BASOPHILS % 0.4 % (0.0-1.0); EOSINOPHILS # (AUTO) 0.2 (0.0-0.4); EOSINOPHILS % 1.5 % (0.0-6.0); HEMATOCRIT 40.5 % (34.2-44.1); HEMOGLOBIN 12.8 g/dL (12.0-16.0); LYMPHOCYTES # (AUTO) 2.5 (1.0-3.2); LYMPHOCYTES % 24.5 % (18.0-39.1); MEAN CORPUSCULAR HEMOGLOBIN 28.6 pg (28-32); MEAN CORPUSCULAR HGB CONC 31.6 g/dL (31-35); MEAN CORPUSCULAR VOLUME 90.4 fL (81-99); MONOCYTES % 9.7 % (4.4-11.3); NEUTROPHILS # (AUTO) 6.4 (2.1-6.9); NEUTROPHILS % 63.6 % (38.7-80.0); PLATELET COUNT 307 x10e3/uL (140-360); RED BLOOD COUNT 4.48 x10e6/uL (3.6-5.1); RED CELL DISTRIBUTION WIDTH 14.6 % (11.7-14.4)
[~2022-11-02] MED LIST changes: +ACETAMINOPHEN325 M1 PO; +ALEVE220 MG PO; +FENTANYL CITRATE/PF 100MCG/2 ML INJ ONE; +GLYCOPYRROLATE INJ 0.2 MG/ML VIAL ONE; +HYOSCYAMINE SULFATE 0.5 MG/ML INJ ONE; +LIDOCAINE HCL 2% LOCAL INJ 5 ML SDV VIAL INJ ONE; +POVIDONE IODINE 0.05% 0.05 % ML PO ONE; -PROBIOTIC; +PROBIOTIC PO; +PROPOFOL IV EMULSION 10 MG/ML 20 ML VIAL ONE; -RESTASIS1 EACH; +RESTASIS1 EACH OU
[2022-11-02 12:46] VITALS: BP 142/62
== END | disposition home or self-care (01) ==
LOC: OR 08:31
PROVIDERS: ATTEND Internal Medicine Gastroenterology
DX: K29.50 Unspecified chronic gastritis without bleeding (principal); K63.5 Polyp of colon; K20.90 Esophagitis, unspecified without bleeding; K44.9 Diaphragmatic hernia without obstruction or gangrene; K21.9 Gastro-esophageal reflux disease without esophagitis; K59.00 Constipation, unspecified; K57.30 Diverticulosis of large intestine without perforation or abscess without bleeding; K64.8 Other hemorrhoids; Z71.3 Dietary counseling and surveillance; I10 Essential (primary) hypertension; Z71.89 Other specified counseling; E03.9 Hypothyroidism, unspecified; E78.00 Pure hypercholesterolemia, unspecified; F41.9 Anxiety disorder, unspecified; F17.210 Nicotine dependence, cigarettes, uncomplicated; Z88.6 Allergy status to analgesic agent; Z88.2 Allergy status to sulfonamides; Z01.810 Encounter for preprocedural cardiovascular examination; Z01.812 Encounter for preprocedural laboratory examination; Z79.899 Other long term (current) drug therapy; Z68.35 Body mass index [BMI] 35.0-35.9, adult
CPT/HCPCS: 36415; 43239; 45380; 45385; 85025; 88305; 88342; 93005; C9113; J1980; J2001; J2704; J3010; 45378; 45384; 88304; 88312

== ENCOUNTER → 2023-09-06 | Outpatient (REF) | payer MEDICARE, OTHER ==
[~2023-09-06] MED LIST changes: +EASY AIR COMPR1 EACH; -FENTANYL CITRATE/PF 100MCG/2 ML INJ ONE; -GLYCOPYRROLATE INJ 0.2 MG/ML VIAL ONE; -HYOSCYAMINE SULFATE 0.5 MG/ML INJ ONE; +IPRAT-ALBUT 0.5-3 ML NEB; -LIDOCAINE HCL 2% LOCAL INJ 5 ML SDV VIAL INJ ONE; -POVIDONE IODINE 0.05% 0.05 % ML PO ONE; -PROPOFOL IV EMULSION 10 MG/ML 20 ML VIAL ONE; +TAMIFLU75 MG PO
== END ==
LOC: MRI 10:30
PROVIDERS: ATTEND Family Medicine
DX: M54.16 Radiculopathy, lumbar region (principal); M47.817 Spondylosis without myelopathy or radiculopathy, lumbosacral region; Z98.890 Other specified postprocedural states
CPT/HCPCS: 72148

== ENCOUNTER 2023-09-19 00:36 | Emergency (ER) | payer MEDICARE, OTHER ==
[~2023-09-19] VITALS: Ht 154.9 cm; Wt 83.9 kg
[~2023-09-19 00:36] MED LIST changes: +ULTRAM 50MG50 MG PO
[2023-09-19 01:26] LABS: BASOPHILS % 0.3 % (0.0-1.0); EOSINOPHILS # (AUTO) 0.2 (0.0-0.4); EOSINOPHILS % 1.3 % (0.0-6.0); HEMATOCRIT 39.3 % (34.2-44.1); HEMOGLOBIN 12.5 g/dL (12.0-16.0); LYMPHOCYTES # (AUTO) 2.3 (1.0-3.2); LYMPHOCYTES % 19.6 % (18.0-39.1); MEAN CORPUSCULAR HEMOGLOBIN 29.3 pg (28-32); MEAN CORPUSCULAR HGB CONC 31.8 g/dL (31-35); MONOCYTES % 8.7 % (4.4-11.3); NEUTROPHILS # (AUTO) 8.1 (2.1-6.9); NEUTROPHILS % 69.8 % (38.7-80.0); PLATELET COUNT 292 x10e3/uL (140-360); RED BLOOD COUNT 4.27 x10e6/uL (3.6-5.1); RED CELL DISTRIBUTION WIDTH 14.6 % (11.7-14.4); WHITE BLOOD COUNT 11.67 x10e3/uL (4.8-10.8)
[2023-09-19] MEDS ORDERED: IOPAMIDOL 370 MG/ML 100 ML INFUS..BTL INJ ONE (01:29)
[2023-09-19 01:40] LABS: ALBUMIN 3.8 g/dL (3.5-5.0); ALBUMIN/GLOBULIN RATIO 1.1 (0.8-2.0); BILIRUBIN,TOTAL 0.2 mg/dL (0.2-1.2); CALCIUM 9.9 mg/dL (8.4-10.2); CREATININE, SERUM 0.76 mg/dL (0.57-1.11); TOTAL PROTEIN 7.2 g/dL (6.5-8.1)
[2023-09-19 02:28] VITALS: BP 143/71; PULSE 61; RESP 17; O2SAT 98
== END 2023-09-19 02:25 | disposition home or self-care (01) ==
LOC: ER 00:40
DX: R30.0 Dysuria (principal); I10 Essential (primary) hypertension; E78.5 Hyperlipidemia, unspecified; E03.9 Hypothyroidism, unspecified; K21.9 Gastro-esophageal reflux disease without esophagitis; F41.9 Anxiety disorder, unspecified
CPT/HCPCS: 36415; 80053; 85025; 99283; Q9967

== ENCOUNTER → 2024-12-11 | Outpatient (REF) | payer MEDICARE, OTHER | LOC: US 07:25 | PROVIDERS: ATTEND Nurse Practitioner | DX: R10.84 Generalized abdominal pain (principal) | CPT/HCPCS: 76700; 76856 ==

== ENCOUNTER → 2025-02-05 | Outpatient (REF) | payer MEDICARE, OTHER | LOC: NM 12:55 | PROVIDERS: ATTEND Internal Medicine Gastroenterology | DX: K82.9 Disease of gallbladder, unspecified (principal) | CPT/HCPCS: 78227; A9537 ==

== ENCOUNTER → 2025-03-12 | Outpatient (REF) | payer MEDICARE, OTHER | LOC: MRI 10:39 | PROVIDERS: ATTEND Family Medicine | DX: S39.012A Strain of muscle, fascia and tendon of lower back, initial encounter (principal); M47.816 Spondylosis without myelopathy or radiculopathy, lumbar region; M51.35 Other intervertebral disc degeneration, thoracolumbar region | CPT/HCPCS: 72148 ==

== ENCOUNTER → 2025-03-19 | Outpatient (REF) | payer MEDICARE, OTHER | LOC: US 09:49 | PROVIDERS: ATTEND Family Medicine | DX: R10.10 Upper abdominal pain, unspecified (principal); K82.8 Other specified diseases of gallbladder | CPT/HCPCS: 76700 ==

== ENCOUNTER 2025-04-10 20:46 | Emergency (ER) | payer MEDICARE, OTHER ==
[~2025-04-10] VITALS: Ht 154.9 cm; Wt 81.6 kg
[2025-04-10 21:11] VITALS: PULSE 65; RESP 16; TEMP 98
[2025-04-10] MEDS ORDERED: IOPAMIDOL 370 MG/ML 100 ML INFUS..BTL INJ ONE (21:56)
[2025-04-10] MEDS: KETOROLAC TROMETHAMINE 30 MG/ML VIAL IV STA (22:57)
[2025-04-11] MEDS ORDERED: KETOROLAC TROME10 MG PO (00:13)
[2025-04-11 00:30] VITALS: BP 160/67; PULSE 67; RESP 18; TEMP 98; O2SAT 99
== END 2025-04-11 00:30 | disposition home or self-care (01) ==
LOC: FSED 21:37
DX: R07.89 Other chest pain (principal); I10 Essential (primary) hypertension; E03.9 Hypothyroidism, unspecified; E78.5 Hyperlipidemia, unspecified; K21.9 Gastro-esophageal reflux disease without esophagitis; F41.9 Anxiety disorder, unspecified; F32.A Depression, unspecified; R94.31 Abnormal electrocardiogram [ECG] [EKG]
CPT/HCPCS: 71260; 80053; 83880; 84484; 85025; 93005; 99283; J1885; Q9967